=== PATIENT | male | born 1970 | race Caucasian/White ===

== ENCOUNTER 2024-04-26 22:52 | Emergency (ER) | payer OTHER ==
[~2024-04-26] VITALS: Ht 182.9 cm; Wt 102.9 kg
[2024-04-26] MEDS ORDERED: HYDROCODONE/ACETA 7.5/325 TAB PO ONE (23:30)
[2024-04-26] MEDS ORDERED: CITALOPRAM HBR20 MG PO (23:59)
[2024-04-26] MEDS ORDERED: HYDROCODON-ACE1 EA10 PO (23:59)
[2024-04-26] MEDS ORDERED: OMEPRAZOLE20 MG PO (23:59)
[2024-04-27] MEDS ORDERED: HYDROCODONE BIT/ACETAMINOPHEN 5/325 MG 1 TAB HOME.PACK PO ONE ×2 (00:15→23:45)
[2024-04-27 00:20] VITALS: BP 121/71
== END 2024-04-27 00:20 | disposition home or self-care (01) ==
LOC: ED 22:52
DX: S42.022A Displaced fracture of shaft of left clavicle, initial encounter for closed fracture (principal); W01.0XXA Fall on same level from slipping, tripping and stumbling without subsequent striking against object, initial encounter; Z79.899 Other long term (current) drug therapy
CPT/HCPCS: 73000; 73030; 99283; A9270